=== PATIENT | male | born 1955 | race Caucasian/White ===

== ENCOUNTER 2022-03-08 13:02 | Day surgery (SDC) | payer MEDICARE, SELFPAY ==
--- NOTE | 2022-03-05 13:26 | P.CONAN_ITS ---
Documented by User: Francoise Crocker NP 03/05/22 13:26 HPI - Anesthesia Eval Consult details Narrative: 66yo M for Colonoscopy [facility] Past Medical History Medical History History of basal cell cancer Left bundle branch block Left inguinal hernia Right inguinal hernia Tubular adenoma Surgical History Surgical History H/O colonoscopy H/O prostatectomy Hx of inguinal hernia repair S/P tonsillectomy Social History Social History Patient Tobacco Use Status: Never used Tobacco Use of substances other than those prescribed or required for medical reasons: No Are you DNR?: No Advance Directives: No Advance Directives Information Provided: Yes Meds Allergies Allergy/AdvReac Type Severity Reaction Status Date / Time SEASONAL ALLERGIES Allergy Mild HAYFEVER,ET Uncoded 03/08/22 13:17 C. Home Medications Medication Instructions Recorded Confirmed Last Taken Type lisinopril 10 mg tablet 1 tab PO DAILY 03/05/22 03/05/22 03/08/22 08:00 History Exam Exam Date and Time: March 05, 2022 1326 Assessment and Plan Assessment Anesthesia Assessment: Chart Reviewed Documented by User: Oscar Yeager MD 03/08/22 14:06 [facility] Past Medical History Medical History History of basal cell cancer Left bundle branch block Left inguinal hernia Right inguinal hernia Tubular adenoma Family History Family history of problems with anesthesia: No Surgical History Surgical History H/O colonoscopy H/O prostatectomy Hx of inguinal hernia repair S/P tonsillectomy History of Problems with Anesthesia: No Social History Social History Patient Tobacco Use Status: Never used Tobacco Use of substances other than those prescribed or required for medical reasons: No Are you DNR?: No Advance Directives: No Advance Directives Information Provided: Yes Meds Allergies Allergy/AdvReac Type Severity Reaction Status Date / Time SEASONAL ALLERGIES Allergy Mild HAYFEVER,ET Uncoded 03/08/22 13:17 C. Home Medications Medication Instructions Recorded Confirmed Last Taken Type lisinopril 10 mg tablet 1 tab PO DAILY 03/05/22 03/05/22 03/08/22 08:00 History Exam Airway Mallampati Class: II TM Dist: >3cm Neck ROM: Full Loose/Missing/Broken Teeth: No Heart: rrr Lungs: clear Assessment and Plan Final Anesthetic Review Family History of Problems with Anesthesia: No History of Problems with Anesthesia: No NPO: Yes ASA Class: II Final Preanesthetic Review: No Changes in Pt Med Stat, Meds/Allgs Chart Reviewed, Consent Obtained/Reviewed and Anes Risks/Benef Reviewed Patient Risk: Intermediate Procedure Risk: Low Anesthetic Plan Anesthetic Plan: MAC: Disposition: Standard PACU
[2022-03-08 13:11] VITALS: BMI 23.8
[2022-03-08 13:23] VITALS: BP 135/75; PULSE 85; RESP 15; TEMP 36.3; O2SAT 98
[2022-03-08] MEDS: Lactated Ringers 1,000 ML 100 ML IVCONT (13:37)
--- NOTE | 2022-03-08 15:09 | PM.OP ---
Brief Operative Note Date of Service: 03/08/22 Pre-op diagnosis: Screening Post-op diagnosis: other (Colon polyps) Procedure: Colonoscopy to the cecum and TI with hot snare polypectomy x 1 at 70cm with clip x 1, and biopsy with removal of polyp x 2. Surgeon: Reza Rachel Anesthesia: MAC Was an Recruitment Consultant used for this Procedure?: No Estimated blood loss (mL): 2.0 Pathology: other (A. Cecal polyp B. Polyp at 70cm C. Polyp at 60cm) Condition: stable Disposition: PACU
[2022-03-08 15:10] VITALS: BP 106/56; PULSE 57; RESP 13; TEMP 36.6; O2SAT 100
[2022-03-08 15:25] VITALS: BP 125/57; PULSE 57; RESP 16; TEMP 36.7; O2SAT 100
--- NOTE | 2022-03-08 22:35 | OP_ITS ---
SURGEON: Reza Rachel MD INDICATIONS: The patient presents for evaluation of personal history of tubular adenomas of the colon, family history of colon cancer, and need for colorectal cancer screening. Full consent has been obtained from him for the procedure, including risks of bleeding and perforation. PREOPERATIVE DIAGNOSIS: POSTOPERATIVE DIAGNOSIS: PROCEDURE PERFORMED: Colonoscopy to the cecum and terminal ileum with a hot snare polypectomy at 70cm with the placement of 1 Resolution clip, and biopsy and removal of polyps. ESTIMATED BLOOD LOSS: COMPLICATIONS: ANESTHESIA: Monitored anesthesia care. ASSISTANTS: SPECIMENS: PREOPERATIVE DIAGNOSES: Personal history of tubular adenoma of the colon, family history of colon cancer, colorectal cancer screening. POSTOPERATIVE DIAGNOSES: Personal history of tubular adenoma of the colon, family history of colon cancer, colorectal cancer screening, colon polyps, diverticulosis, and internal hemorrhoids. DESCRIPTION OF PROCEDURE: The patient was placed in the left lateral decubitus position. The digital rectal exam revealed no abnormalities. The [employer] video pediatric colonoscope was entered into the rectum and advanced easily to the cecum. Once in the cecum, I did identify the cecal pouch with appendiceal orifice and a normal-appearing ileocecal valve. The terminal ileum was cannulated and appeared normal. The scope was withdrawn back in the colon. The entire cecum was well visualized. In the cecum, was an approximately 2 or 3 mm polyp, which was biopsied and completely removed with the cold biopsy forceps. The scope was then slowly withdrawn assessing all mucosal surfaces carefully. Preparation was excellent. At approximately 70 cm at what appeared to be either the distal transverse colon or area of the splenic flexure, was an approximately 1.2 cm grossly adenomatous polypoid lesion without any stalk. This was removed completely by hot snare polypectomy in 1 piece and withdrawn from the patient in a retrieval net. The scope was advanced back to the polypectomy site, which appeared clean, without any sign of residual polyp nor bleeding. A single resolution clip was applied with good deployment and good hemostasis. At 60 cm was an approximately 3 mm polyp, which was biopsied and completely removed with the cold biopsy forceps. I did not visualize any other polyps, colitis, nor angiodysplasia. There was a mild amount of sigmoid diverticulosis. In the rectum, the scope was retroflexed visualizing prominent internal hemorrhoids, but no other pathology. The rectal mucosa appeared normal. The scope was straightened and withdrawn from the patient. He tolerated the procedure well and was returned to the recovery area in stable condition. IMPRESSION: 1. Colon polyps. 2. Diverticulosis. 3. Internal hemorrhoids. PLAN: The results of the pathology will be checked. Given today's findings, I would recommend a repeat colonoscopy in 3 years for further screening and surveillance rather than waiting 5 years given his finding of the larger polyp today, previous history of adenomas, and family history of colon cancer. He was advised not to use any aspirin and NSAIDs for at least 1 week. This has all been discussed with his . MD JASON Mai/CASEY / [id number] MTDD
== END 2022-03-08 16:05 | disposition home or self-care (01) ==
PROVIDERS: Visit Provider Internal Medicine
PROC: 0DJD8ZZ Inspection of Lower Intestinal Tract, Via Natural or Artificial Opening Endoscopic (ICD-10-PCS; CPT 45378; principal; 2022-03-08 14:00)
DX: Z12.11 Encounter for screening for malignant neoplasm of colon (principal); Z86.010 Personal history of colon polyps; Z80.0 Family history of malignant neoplasm of digestive organs; D12.0 Benign neoplasm of cecum; D12.4 Benign neoplasm of descending colon; K57.30 Diverticulosis of large intestine without perforation or abscess without bleeding; K64.8 Other hemorrhoids; I10 Essential (primary) hypertension; J30.2 Other seasonal allergic rhinitis; Z79.899 Other long term (current) drug therapy; Z85.828 Personal history of other malignant neoplasm of skin; Z85.46 Personal history of malignant neoplasm of prostate
CPT/HCPCS: 45385; 45380; 88305